=== PATIENT | female | born 1990 | race Caucasian/White ===

== ENCOUNTER 2017-12-07 10:45 | Outpatient (CLI) | payer OTHER | END 2017-12-07 10:46 | disposition home or self-care (01) | LOC: BICULT 10:45 | PROVIDERS: ATTEND Family Medicine | DX: Z34.92 Encounter for supervision of normal pregnancy, unspecified, second trimester (principal); Z3A.20 20 weeks gestation of pregnancy | CPT/HCPCS: 76805 ==

== ENCOUNTER 2018-04-16 17:35 | Inpatient (IN) | payer OTHER ==
[2018-04-16] MEDS ORDERED: Promethazine HCl 25 MG/ML VIAL IM PRN (21:29)
[2018-04-16] MEDS ORDERED: Acetaminophen 500 MG TAB PO PRN (21:29)
[2018-04-16] MEDS ORDERED: HYDROcodone/Acetaminophen 5/325 mg Tablet PO PRN (21:29)
[2018-04-16] MEDS ORDERED: Lidocaine 1% (PF) 30 ML VIAL SC PRN (21:29)
[2018-04-16] MEDS ORDERED: Zolpidem Tartrate 5 MG TAB PO PRN (21:29)
[2018-04-16] MEDS ORDERED: NS w/ Oxytocin 10 units 500 ML IV SCH (21:29)
[2018-04-16] MEDS ORDERED: Misoprostol 200 MCG TAB PR PRN (21:29)
[2018-04-16] MEDS ORDERED: Ibuprofen 800 MG TAB PO PRN (21:29)
[2018-04-16] MEDS ORDERED: Ondansetron HCl/PF 4 MG/2 ML Vial IVP PRN (21:29)
[2018-04-16] MEDS ORDERED: Butorphanol Tartrate 1 MG/ML VIAL SLOW IVP PRN (21:29)
[2018-04-16 21:42] VITALS: BMI 46.0
[2018-04-16] MEDS: Lactated Ringer's 1,000 ML IV SCH (22:15)
[2018-04-16 22:27] LABS: Hemoglobin 11.6 g/dL (12.0-16.0); Mean Corpuscular HGB CONC 36.2 g/dL (32.0-36.0); Mean Corpuscular Hemoglobin 31.3 pg (27.0-31.0); Mean Corpuscular Volume 86.4 fL (78.0-98.0); Mean Platelet Volume 8.3 fL (7.4-10.4); Platelet Count 191 thou/uL (130-400); RBC Distribution Width 11.9 % (11.5-14.5); White Blood Cell (WBC) Count 11.3 thou/uL (4.8-10.8)
[2018-04-16] MEDS: Misoprostol 100 MCG TAB VAG SCH (22:30)
[2018-04-16 23:14] LABS: Syphilis Antibody Nonreactive (Nonreactive); Syphilis Antibody Index 0.03 S/CO (<1.00 Non-Reactive)
[2018-04-16 23:17] LABS: HBSAg Index 0.15 S/CO (0-0.99); Hep B Surf Ag Non-Reactive S/CO (NonReactive)
--- NOTE | 2018-04-17 00:34 | HP ---
HISTORY OF PRESENT ILLNESS: This is a 28-year-old white female, , with an EDC of 04/22/2018 at 39 weeks' gestation, who is being admitted for an elective induction. The patient does have a histor y of 1 prior normal vaginal delivery. Her course has been uncomplicated. She is having occ asional contractions. No complaints of any fever, nausea, vomiting, or rupture of membranes. PAST MEDICAL HISTORY: History of gestational hypertension. ALLERGIES: None. PAST SURGICAL HISTORY: Tonsillectomy, ear drum repair, spontaneous vaginal delivery x1, and a histor y of bilateral myringotomy tubes. FAMILY HISTORY: Mother with diabetes, hypertension, and paternal grandmother with a history of breas t cancer. MEDICATIONS: vitamins and iron. SOCIAL HISTORY: She is . She has one daughter. She is a nonsmoker. REVIEW OF SYSTEMS: As above. PHYSICAL EXAMINATION: VITAL SIGNS: Stable, afebrile. HEENT: Clear. HEART: Regular rate and rhythm. LUNGS: Clear. ABDOMEN: Soft and gravid. EXTREMITIES: With no edema. LABORATORY AND X-RAY FINDINGS: GBS negative, one-hour GCT is 118. A positive blood type, RPR negati ve, HIV negative, hepatitis B negative, thyroid normal, HPV negative, GC/chlamydia negative, Pap smea r normal, rubella immune. Urine culture negative. ASSESSMENT: 1. A 39-week intrauterine , desiring induction. 2. History of 1 prior vaginal delivery. PLAN: 1. Routine L and D orders. 2. Routine anesthesia orders. 3. Anticipate normal vaginal delivery.
[2018-04-17] MEDS: Misoprostol 100 MCG TAB VAG SCH ×4 (01:39→15:26)
[2018-04-17] MEDS: Lactated Ringer's 1,000 ML IV SCH ×2 (05:59→08:39)
[2018-04-17] MEDS ORDERED: Bupivacaine 0.75% 13.4 ML, fentaNYL Citrate/PF 400 MCG in Sodium Chloride 0.9% 78.6 ML EPIDURAL SCH (07:00)
[2018-04-17] MEDS ORDERED: DISCONTINUE ALL PREVIOUS NARCOTICS FS SCH (07:00)
[2018-04-17] MEDS ORDERED: Promethazine HCl 25 MG/ML VIAL IM PRN (08:18)
[2018-04-17] MEDS ORDERED: Eucerin (Mineral Oil/Petrolatum,White) 30 gm Jar TOP PRN (08:18)
[2018-04-17] MEDS ORDERED: Ondansetron HCl/PF 4 MG/2 ML Vial IVP PRN (08:18)
[2018-04-17] MEDS ORDERED: ePHEDrine/0.9% NaCl/PF SYRINGE 50 mg/10 ml SLOW IVP PRN (08:18)
[2018-04-17] MEDS ORDERED: Naloxone HCl 0.4 mg/ml Vial IVP PRN ×2 (08:18)
[2018-04-17] MEDS ORDERED: diphenhydrAMINE 50 MG/ML VIAL IVP PRN (08:18)
[2018-04-17] MEDS ORDERED: Acetaminophen 325 MG TAB PO PRN (08:18)
[2018-04-17] MEDS ORDERED: Lactated Ringer's 500 ML IV PRN (08:18)
[2018-04-17] MEDS ORDERED: Fentanyl 4mcg/Marcaine 0.1% Cassette 100 ML EPIDURAL SCH (08:30)
[2018-04-17] MEDS ORDERED: Communication Order-Pharmacy FS SCH (08:30)
[2018-04-17] MEDS: NS / Oxytocin 40 units/1000ml 1,000 ML IV PRN ×2 (11:59→13:40)
--- NOTE | 2018-04-17 12:45 | DN ---
DATE OF DELIVERY: 04/17/2018 at 12 noon. PREOPERATIVE DIAGNOSIS: Term . POSTOPERATIVE DIAGNOSES: 1. Term . 2. Cord around the neck x1. PROCEDURE: Normal spontaneous vaginal delivery. SURGEON: Kyle Devlin M.D. ANESTHESIA: Epidural. PROCEDURE: This is a 28-year-old white female taken to delivery room, complete and pushing. T he patient prepped and draped sterilely. Delivered a baby girl with Apgars 8 at 1 minute, 9 at 5 min utes. Baby did breathe and cry vigorously upon delivery. Delivered placenta, 3-vessel intact. No l acerations were present. Estimated blood loss was 350 mL. Mother and baby did well.
[2018-04-17] MEDS ORDERED: Adacel (T-DAP) 0.5 ML VIAL IM ONE (15:01)
[2018-04-17] MEDS ORDERED: Lanolin Ointment 7 GM TUBE TOP PRN (15:01)
[2018-04-17] MEDS ORDERED: HYDROcodone/Acetaminophen 5/325 mg Tablet PO PRN (15:01)
[2018-04-17] MEDS ORDERED: NS / Oxytocin 40 units/1000ml 1,000 ML IV SCH (15:01)
[2018-04-17] MEDS ORDERED: Bisacodyl 10 MG SUPP PR PRN (15:01)
[2018-04-17] MEDS ORDERED: Milk Of Magnesia 30 ML UDCUP PO PRN (15:01)
[2018-04-17] MEDS: Ferrous Sulfate 325 MG TAB PO SCH (15:33)
[2018-04-17] MEDS: Docusate Calcium (SURFAK) 240 MG CAP PO SCH (21:28)
[2018-04-18] MEDS: Ibuprofen 800 MG TAB PO PRN ×2 (00:14→07:42)
[2018-04-18 03:45] VITALS: TEMP 97.7
[2018-04-18 06:02] LABS: Mean Corpuscular HGB CONC 32.5 g/dL (32.0-36.0); Mean Corpuscular Hemoglobin 29.1 pg (27.0-31.0); Mean Corpuscular Volume 89.6 fL (78.0-98.0); Mean Platelet Volume 8.9 fL (7.4-10.4); Platelet Count 168 thou/uL (130-400); RBC Distribution Width 12.2 % (11.5-14.5); Red Blood Cell (RBC) Count 3.78 mill/uL (4.20-5.40); White Blood Cell (WBC) Count 11.6 thou/uL (4.8-10.8)
[2018-04-18] MEDS: Docusate Calcium (SURFAK) 240 MG CAP PO SCH (07:42)
[2018-04-18 08:08] VITALS: BP 134/82
[2018-04-18] MEDS ORDERED: Prenatal Vitamin 1 TAB PO SCH (09:00)
[2018-04-18] MEDS: Ferrous Sulfate 325 MG TAB PO SCH ×2 (09:27→09:28)
== END 2018-04-18 13:24 | disposition home or self-care (01) | DRG 775 ==
LOC: L&D 21:05 → 3SW 04-17 14:38 → EDSTATUS 04-22 17:34
PROVIDERS: ADMIT Family Medicine; ATTEND Family Medicine
PROC: 3E0P7VZ Introduction of Hormone into Female Reproductive, Via Natural or Artificial Opening (ICD-10-PCS; 2018-04-16)
PROC: 10E0XZZ Delivery of Products of Conception, External Approach (ICD-10-PCS; principal; 2018-04-17)
DX: O69.81X0 Labor and delivery complicated by cord around neck, without compression, not applicable or unspecified (principal); Z3A.39 39 weeks gestation of pregnancy; Z37.0 Single live birth
CPT/HCPCS: 36415; 51702; 85027; 86780; 86850; 86900; 86901; 87340; J2001; J3010; J7050